=== PATIENT | female | born 1990 | race American Indian/Alaskan Native ===

== ENCOUNTER 2017-02-12 13:58 | Outpatient (CLI) | payer MEDICAID ==
[2017-02-12 14:43] VITALS: BP 105/57
[2017-02-12] MEDS ORDERED: LACTATED RINGERS 500 ML IV ONE (17:00)
--- NOTE | 2017-02-12 20:17 | Progress Note ---
Assessment and Plan A: at 33 weeks, 1 day gestation. Fall. P: Discharge pt. at 9:00 PM. Normal US and reactive NST. Advised pt. to keep scheduled follow up at [facility]. Subjective - Subjective Date of service: 02/12/17 Principal diagnosis: at 33 weeks, 1 day gestation; fall Interval history: 26 year old at 33 weeks, 1 day gestation fell after learning of her brother's today. She states she was so overwhelmed she fell to her knees and thinks she may have hit her belly but is not sure. Patient reports active movement. She denies contractions, leaking of fluid, or vaginal bleeding. She denies abdominal pain. NST is reactive. No contractions noted or palpated. BPP 8 /8. Normal KELLY. US shows no signs of abruption. Abdomen is soft. Discharge pt. to home at 9 PM. Pt. to keep scheduled follow up at [facility]. Objective - Vital Signs Vital Signs: Vital Signs - 12hr 02/12/17 14:46 Pulse Rate 69 Blood Pressure 105/57 - Exam Abdomen: Present: normal appearance, soft. Absent: distention, tenderness, guarding, rigidity Uterus: Present: normal, fundal height above umbilicus. Absent: tenderness FHR: category 1 Uterine Contraction Pattern: Absent
--- NOTE | 2017-02-13 10:29 | Ultrasound Report ---
History: well being. Rule out abruption BIOPHYSICAL PROFILE: 2 - breathing movements 2 - movements 2 - posture and tone 2 - Qualitative amniotic fluid volume 8 - TOTAL SCORE OF POSSIBLE 8 Heart Rate (bpm) 155 Gestation: Single Position: Cephalic Amniotic Fluid: KELLY = 10.7 cm Heart Rate: 150 BPM No evidence of placental abruption.
== END 2017-02-12 21:10 | disposition home or self-care (01) ==
LOC: TRG 13:58
PROVIDERS: ATTEND Obstetrics & Gynecology
DX: O47.03 False labor before 37 completed weeks of gestation, third trimester (principal); O26.893 Other specified pregnancy related conditions, third trimester; W19.XXXA Unspecified fall, initial encounter; Z3A.33 33 weeks gestation of pregnancy; Y93.89 Activity, other specified; Y92.89 Other specified places as the place of occurrence of the external cause; Y99.8 Other external cause status
CPT/HCPCS: 59025; 76815; 76819

== ENCOUNTER 2017-03-04 14:28 | Outpatient (CLI) | payer MEDICAID ==
[2017-03-04] MEDS ORDERED: LACTATED RINGERS 500 ML IV ONE (15:36)
[2017-03-04 15:41] VITALS: BP 110/64
== END 2017-03-04 17:05 | disposition home or self-care (01) ==
LOC: TRG 14:28
PROVIDERS: ATTEND Obstetrics & Gynecology
DX: Z34.93 Encounter for supervision of normal pregnancy, unspecified, third trimester (principal); Z3A.36 36 weeks gestation of pregnancy
CPT/HCPCS: 59025